=== PATIENT | female | born 1980 | race American Indian/Alaskan Native ===

== ENCOUNTER 2017-09-11 11:52 | Emergency (ER) | payer SELFPAY ==
[2017-09-11] MEDS ORDERED: ULTRAM PO ONE (13:08)
[2017-09-11] MEDS ORDERED: XYLOCAINE 2% INFILTRATI ONE (13:09)
--- NOTE | 2017-09-11 13:10 | Emergency Department Report ---
ED Upper Extremity Inj HPI - General Chief Complaint: Extremity Injury, Upper Stated Complaint: LAC R HAND Time Seen by Provider: 09/11/17 13:01 Source: patient Mode of arrival: Ambulatory Limitations: No Limitations - Related Data Allergies Allergy/AdvReac Type Severity Reaction Status Date / Time No Known Allergies Allergy Unverified 09/11/17 12:07 ED Review of Systems ROS: Stated complaint: LAC R HAND Other details as noted in HPI ED Past Medical Hx - Past Medical History Previous Medical History?: No - Surgical History Past Surgical History?: Yes Additional Surgical History: Collar bone biopsy - Social History Smoking Status: Former Smoker Substance Use Type: Alcohol ED Physical Exam - General Limitations: No Limitations ED Course Vital Signs 09/11/17 12:07 Temperature 98 F Pulse Rate 72 Respiratory 20 Rate Blood Pressure 116/77 O2 Sat by Pulse 100 Oximetry Critical care attestation.: If time is entered above; I have spent that time in minutes in the direct care of this critically ill patient, excluding procedure time. ED Disposition Condition: Stable Referrals: PRIMARY CARE [Primary Care Provider] - 3-5 Days
--- NOTE | 2017-09-11 13:15 | Emergency Department Report ---
ED Laceration HPI - HPI Chief Complaint: Extremity Injury, Upper Stated Complaint: LAC R HAND Time Seen by Provider: 09/11/17 13:01 Occurred When: Today Location: Upper Extremity (3rd digit of right hand) Severity: moderate Tetanus Status: Up to Date (received 2 years ago) Laceration Symptoms: Yes Numbness, Yes Pain, No Foreign Body Sensation, No Weakness Other History: This is a 36 y.o. -[place] female that presents with a laceration to right 3rd finger. Patient was cleaning a fish bowl at home. It fell and broke into pieces. She tried to catch it and a piece punctured her finger. She applied pressure with a paper towel and came directly here. She has been clean wound with anything at home. She had a tetanus vaccine 2 years ago in ER. Admits to bloody discharge and pain. Denies swelling, ED Review of Systems ROS: Stated complaint: LAC R HAND Other details as noted in HPI Constitutional: denies: chills, fever Respiratory: denies: cough, shortness of breath, wheezing Cardiovascular: denies: chest pain, palpitations Gastrointestinal: denies: abdominal pain, nausea, diarrhea Skin: other (laceration to 4th digit). denies: rash, lesions Neurological: denies: headache, weakness, numbness, paresthesias Psychiatric: denies: anxiety, depression ED Past Medical Hx - Past Medical History Previous Medical History?: No - Surgical History Past Surgical History?: Yes Additional Surgical History: Collar bone biopsy - Social History Smoking Status: Former Smoker Substance Use Type: Alcohol - Medications Home Medications: Home Medications Medication Instructions Recorded Confirmed Last Taken Type Sulfamethoxazole/Trimethoprim 1 each PO BID 7 Days #14 tablet 09/11/17 Unknown Rx [Bactrim DS TAB] Laceration Physical Exam - Exam General: Vital signs noted. No distress. Alert and acting appropriately. Wound Length (cm): 2 Laceration Location: Upper Extremity (right 4th proximal digit) Laceration Exam: Yes Normal Distal CMS, No Foreign Body, No Exposed Tendon, Vessel, or Nerve, No Tendon Injury ED Course Vital Signs 09/11/17 12:07 Temperature 98 F Pulse Rate 72 Respiratory 20 Rate Blood Pressure 116/77 O2 Sat by Pulse 100 Oximetry - Laceration /Wound Repair Right Anterior Medial Finger Wound Location: upper extremity (right 4th proximal digit) Wound Length (cm): 2 Wound's Depth, Shape: into muscle, irregular, flap Wound Explored: no foreign body removed Irrigated w/ Saline (ccs): 5 Betadine Prep?: Yes Anesthesia: 1% Lidocaine (2% lidocaine) Volume Anesthetic (ccs): 2 Wound Debrided: minimal Wound Repaired With: sutures Suture Size/Type: 5:0 Number of Sutures: 5 Layer Closure?: No Sterile Dressing Applied?: Yes ED Medical Decision Making - Radiology Data Radiology results: report reviewed XR right finger: Essentially negative fourth digit. - Medical Decision Making This is a 39 y.o. female that presents with right 4th digit laceration that happened 1 hour ago. Patient examined by me. Vitals stable. Patient is non-toxic appearing and stable. Given tramadol 50 mg po once in ER for pain. X-ray of right finger obtained and normal. Tetanus vaccine up to date. Laceration repair, 5 sutures review notes. Discharged home for outpatient treatment with bactrim. Discussed ER care plan with patient. Patient agreed with plan. F/U with PCP. Critical care attestation.: If time is entered above; I have spent that time in minutes in the direct care of this critically ill patient, excluding procedure time. ED Disposition Clinical Impression: Laceration of finger of right hand Qualifiers: Encounter type: initial encounter Finger: ring finger Damage to nail status: without damage Foreign body presence: without foreign body Qualified Code(s): S61.214A - Laceration without foreign body of right ring finger without damage to nail, initial encounter Disposition: TO HOME OR SELFCARE Is pt being admited?: No Does the pt Need Aspirin: No Condition: Stable Instructions: Suture Care (ED), Laceration (ED) Additional Instructions: Take antibiotics as prescribed for the full course. Avoid over use of left hand and prop arm up on pillows to decrease swelling. Follow up with Primary Care Provider in 2-3 days. Have sutures removed in 7 days by primary care provider or return to the ER. Return to ER if red, swollen, foul discharge, or fever. Prescriptions: Sulfamethoxazole/Trimethoprim [Bactrim DS TAB] 1 each PO BID 7 Days #14 tablet Referrals: [facility] [Outside] - 3-5 Days [facility] [Outside] - 3-5 Days [facility] [Outside] - 3-5 Days Time of Disposition: 13:34 Print Language: NEPALI
--- NOTE | 2017-09-11 14:19 | XRay Report ---
Right Fourth digit 3 views: History: Laceration fourth digit. Findings: No bony or articular abnormality. No fracture. No periosteal reaction. Impression: Essentially negative fourth digit.
[2017-09-11 15:00] VITALS: BP 118/72
== END 2017-09-11 15:03 | disposition home or self-care (01) ==
LOC: ED 11:52
DX: S61.214A Laceration without foreign body of right ring finger without damage to nail, initial encounter (principal); Z87.891 Personal history of nicotine dependence; W25.XXXA Contact with sharp glass, initial encounter; Y93.E9 Activity, other interior property and clothing maintenance; Y99.8 Other external cause status; Y92.098 Other place in other non-institutional residence as the place of occurrence of the external cause